=== PATIENT | female | born 1980 | race Caucasian/White ===

== ENCOUNTER 2023-05-22 09:25 | Outpatient (CLI) | payer BC, SELFPAY | END 2023-05-22 09:26 | disposition home or self-care (01) | PROVIDERS: PCP Nurse Practitioner Family; Visit Provider Nurse Practitioner Family | DX: Z00.00 Encounter for general adult medical examination without abnormal findings (principal); E55.9 Vitamin D deficiency, unspecified; Z13.1 Encounter for screening for diabetes mellitus | CPT/HCPCS: 82306; 82947 ==

== ENCOUNTER 2025-05-16 10:57 | Outpatient (CLI) | payer BC, SELFPAY ==
[2025-05-18 16:46] LABS: HPV Source Vaginal
[2025-05-23 12:19] LABS: Pap Test Digital Imaging Done; Pap Test Reviewed by Pathologi Done
== END 2025-05-16 10:58 | disposition home or self-care (01) ==
PROVIDERS: PCP Nurse Practitioner Family; Visit Provider Nurse Practitioner Family
DX: Z00.00 Encounter for general adult medical examination without abnormal findings (principal)
CPT/HCPCS: 80061; 82947; 87624; 87625; 88141; 88142; 88175